=== PATIENT | male | born 1995 | race Caucasian/White ===

== ENCOUNTER 2016-09-27 21:20 | Observation (INO) | payer OTHER ==
--- NOTE | ~2016-09-27 | HP ---
History And Physical [id number] [place]. [address] NAME: DERREK FERREIRA : [birth year] STATUS : DIS [place]iola PAT#: [id number] AGE: 21 ADM/REG DATE : 09/27/16 MR#: [id number] REPORT SERV DATE: 09/30/16 DICTATED BY: BETTIE MOSER DATE: 09/28/16 REPORT STATUS : Draft TRANSCRIBED BY: MODL DATE: 09/28/16 DATE OF ADMISSION: 09/27/2016 CHIEF COMPLAINT: Abdominal pain. HISTORY OF PRESENT ILLNESS: This is a 21-year-old male, who was visiting his grandmother in [facility] yesterday when he began to experience some nausea, anorexia, and exquisite right lower quadrant pain. He presented to the emergency department, was found to have a white blood cell count of 11.[address] evidence of acute appendicitis, primarily in the tip. The patient denies any diarrhea or sick contacts. Does say the pain is persistent. He denies any fever or chills, any blood per stool. He has never had a colonoscopy. He has no shortness of breath, palpitations, or changes in mental status. REVIEW OF SYSTEMS: Negative except as per HPI. PAST MEDICAL HISTORY: Depression. PAST SURGICAL HISTORY: [place] teeth extraction. MEDICATIONS: Venlafaxine. ALLERGIES: THE PATIENT DENIES ANY KNOWN DRUG OR ENVIRONMENTAL ALLERGIES. FAMILY HISTORY: The patient is unsure of any family history of significant bleeding disorders, bowel diseases, cancers, or medical issues such as diabetes or coronary artery disease. SOCIAL HISTORY: The patient is and is disabled from the . He has no children. He does smoke one-half pack of cigarettes daily and endorses occasional but rare alcohol use. He denies drug use. PHYSICAL EXAMINATION: VITAL SIGNS: The patient is afebrile with stable vital signs. GENERAL APPEARANCE: The patient is alert and oriented x3 and in no apparent distress. HEAD EYES, EARS, NOSE, AND THROAT: There is no scleral icterus and no facial droop. Hearing is grossly normal. There is no otorrhea. Oropharynx is pink and moist. NECK: Examination of the neck reveals no cervical lymphadenopathy or thyromegaly. CHEST: Lung sounds are clear bilaterally with nonlabored respirations. CARDIAC: Heart rate is regular. No murmurs. ABDOMEN: Soft and nondistended. Rovsing sign is positive, and he is tender with involuntary guarding in the right lower quadrant. There are no hernias. NECK: Examination of extremities reveals no deformity and full range of motion x4. No edema. PSYCHIATRIC: Appropriate mood and affect with normal speech patterns. NEUROLOGIC: No focal deficits. History And Physical [address] [place]. [address] NAME: DERREK FERREIRA : 89 STATUS : DIS [place]ola PAT#: [id number] AGE: 21 ADM/REG DATE : 09/27/16 MR#: [id number] REPORT SERV DATE: 09/30/16 DICTATED BY: BETTIE MOSER DATE: 09/28/16 REPORT STATUS : Draft TRANSCRIBED BY: FLOWER DATE: 09/28/16 LABORATORY DATA: Relevant laboratory studies reveal a white blood cell count of 11.2, hemoglobin is 15.8, and platelets are 229. CMP is within normal limits with a lipase of 106 and creatinine of 0.9. Urinalysis is negative for infection or blood. CT scan shows periappendiceal fat stranding as well as a thickened distal appendix. No evidence of perforation. This is consistent with acute appendicitis. ASSESSMENT AND PLAN: This is a 21-year-old male with acute appendicitis. Plan will be to take for laparoscopic appendectomy today. He will be placed n.p.o. with IV fluids and antibiotics on-call to the operating room. Plan will be to retain the patient in-house postoperatively for pain control and diet advancement. DICTATED BY: MD KELVIN Benitez/FLOWER Bettie Moser MD / [id number] CC: Chiquita Marsh MD
--- NOTE | ~2016-09-27 | OP ---
Record Of Operation [facility] [address] [place]. [address] NAME: DERREK FERREIRA : [birth year] STATUS : DIS Abiola PAT#: [id number] AGE: 21 ADM/REG DATE : 09/27/16 MR#: [id number] REPORT SERV DATE: 09/30/16 DICTATED BY: BETTIE MOSER DATE: 09/28/16 REPORT STATUS : Draft TRANSCRIBED BY: MODL DATE: 09/28/16 DATE OF PROCEDURE: 09/28/2016 PREOPERATIVE DIAGNOSIS: Acute appendicitis. POSTOPERATIVE DIAGNOSIS: Acute appendicitis. PROCEDURE PERFORMED: Laparoscopic appendectomy. SURGEON: Dr. Bettie Moser. FELLOW: Dr. Santi Agarwal. ANESTHESIA: General endotracheal tube anesthesia plus local anesthetic. IV FLUIDS: 500 mL. ESTIMATED BLOOD LOSS: 5 mL. SPECIMENS AND CULTURES: Appendix sent to surgical pathology. DRAINS: None. COMPLICATIONS: None. INDICATIONS FOR PROCEDURE: This is a 21-year-old male who presented to the emergency department with right lower quadrant abdominal pain, was found to have acute appendicitis. He was offered laparoscopic appendectomy. Risks, benefits, and alternatives, including bleeding, infection, scarring, perforation, abscess, risk of DVT, risk of future hernia, anesthesia risks, and injury to the surrounding structures were explained to the patient who understood these and consented to undergo laparoscopic possible open appendectomy. DESCRIPTION OF PROCEDURE: The patient was brought to the operating room, placed in the supine position where anesthesia was induced. He was secured to the bed and no Bryan catheter was placed due to urination prior to the procedure. His arms were tucked and the patient was secured tightly to the bed. Preoperative antibiotics were administered and SCDs were placed and turned on. Preoperative time-out was called and agreed upon. The patient's abdomen was prepped and draped sterilely. A scalpel was used to make an incision through the base of the umbilicus and blunt dissection was used to enter the [place] umbilical defect which the patient had a fairly large umbilical hernia roughly half a centimeter across. We were able to enter the abdomen bluntly and placed a 12 mm trocar where pneumoperitoneum was achieved without complication. We then placed two 5 mm working ports under direct visualization, one in the right upper quadrant and one in the left lower quadrant. Survey of the abdomen did not reveal any bowel injury or any other abnormalities. The appendix was easily visualized in the right lower quadrant and due to some surrounding inflammation, was stuck at the pelvic brim. This was taken down sharply with minimal bleeding. Blunt Record Of Operation [facility] [address] [facility] [place]. [address] NAME: DERREK FERREIRA : 89 STATUS : DIS Abiola PAT#: [id number] AGE: 21 ADM/REG DATE : 09/27/16 MR#: [id number] REPORT SERV DATE: 09/30/16 DICTATED BY: BETTIE MOSER DATE: 09/28/16 REPORT STATUS : Draft TRANSCRIBED BY: MODL DATE: 09/28/16 dissection was able to free the appendix up and then a window was created using blunt dissection at the appendiceal cecal confluence. A 45 mm blue load laparoscopic stapler was then passed across the base of the appendix junction with the cecum. The appendix was then elevated and a white load laparoscopic vascular stapler was passed across the mesoappendix. There was noticeable bleeding vessel after firing of the white load stapler and this was grasped and 3 laparoscopic clips were placed. Hemostasis was then adequate. There was a small attachment left of the appendix to the cecal base not involving bowel. A clip was placed on the stay side of the specimen and this was divided sharply. The appendix was placed in the EndoCatch bag. The operative field was again reexamined for hemostasis and it was found to be adequate. Laparoscopic working ports were taken out under direct visualization. The fascia at the umbilical incision was closed using a 0 Vicryl suture in [id number] fashion. All skin defects were closed using 4-0 Monocryl and dressed sterilely. All needle, lap, and instrument counts were correct at the end of the procedure and Dr. Moser was scrubbed and present for the duration of the procedure. DICTATED BY: MD KELVIN Benitez/FLOWER Bettie Moser MD / [id number] CC: Chiquita Marsh MD
[2016-09-28 00:47] LABS: BASOPHILS 0.2 %; BASOPHILS ABSOLUTE 0.02 10/3/uL (0.0-0.16); EOSINOPHILS 2.3 %; EOSINOPHILS ABSOLUTE 0.26 10/3/uL (0.0-0.53); ER CBC TAT 0 Hrs 10 Mins; HEMOGLOBIN 15.8 g/dL (13.6-17.8); IMMATURE GRANULOCYTES 0.3 %; IMMATURE GRANULOCYTES ABSOLUTE 0.03 10/3/uL (0.0-0.11); LYMPHOCYTES ABSOLUTE 3.26 10/3/uL (0.67-4.30); MEAN CORPUS HGB CONC 34.3 g/dL (32.0-36.0); MEAN CORPUSCULAR HEMOGLOB 30.3 pg (26.0-34.0); MEAN CORPUSCULAR VOLUME 88.1 fL (80-100); MEAN PLATELET VOLUME 10.9 fL (9.2-13.0); MONOCYTES 6.9 %; MONOCYTES ABSOLUTE 0.78 10/3/uL (0.21-1.20); NEUTROPHILS 61.3 %; NEUTROPHILS ABSOLUTE 6.89 10/3/uL (2.02-8.40); PLATELET COUNT 229 10/3/uL (150-400); RBC DISTRIBUTION WIDTH 12.1 % (12.0-16.0); RED CELL COUNT 5.22 10/6/uL (4.7-6.1); WHITE BLOOD CELLS 11.2 10/3/uL (4.5-10.5)
[2016-09-28 00:48] LABS: MANUAL DIFF NO %
[2016-09-28 01:04] LABS: ALKALINE PHOSPHATASE 90 U/L (45-117); BUN (BLOOD UREA NITROGEN) 22 MG/DL (6-23); CALCIUM, SERUM 9.1 MG/DL (8.5-10.4); CHLORIDE, SERUM 101 MMOL/L (96-112); CO2 (CARBON DIOXIDE) 31 MMOL/L (24-34); GFR AFRICAN AMERICAN 139 ML/MIN (>=60); GFR NON AFRICAN AMERICAN 120 ML/MIN (>=60); GLUCOSE, SERUM 86 MG/DL (60-99); POTASSIUM, SERUM 4.1 MMOL/L (3.5-5.3); SGOT(AST) 13 U/L (5-40); SGPT(ALT) 35 U/L (5-65); SODIUM, SERUM 140 MMOL/L (135-148); TOTAL BILIRUBIN 0.3 MG/DL (0-1.2)
[2016-09-28 01:16] LABS: ASCORBIC ACID (UR NOT ORDER) NEG (NEG); BILIRUBIN, URINE NEGATIVE (NEG); ER URINALYSIS TAT 0 Hrs 00 Mins; KETONE, URINE NEGATIVE (NEG); LEUKOCYTE ESTERASE(NOT OR NEG (NEG); NITRITE (URINE) NEG (NEG); WBC (NOT ORDERED) (RFLEX) 0 (0-5)
[2016-09-28] MEDS ORDERED: EFFEXOR XR150 MG PO (01:35)
[2016-09-28] MEDS ORDERED: VITAMIN D31000 UNIT PO (01:35)
[2016-09-28] MEDS ORDERED: VOLT50 PO (01:35)
[2016-09-28] MEDS ORDERED: HABIT21 TOP (01:36)
[2016-09-28] MEDS ORDERED: NICOTINE 4 MG PO (01:37)
[2016-09-29 06:40] LABS: BASOPHILS 0.1 %; BASOPHILS ABSOLUTE 0.01 10/3/uL (0.0-0.16); EOSINOPHILS 0.3 %; EOSINOPHILS ABSOLUTE 0.03 10/3/uL (0.0-0.53); IMMATURE GRANULOCYTES 0.1 %; IMMATURE GRANULOCYTES ABSOLUTE 0.01 10/3/uL (0.0-0.11); LYMPHOCYTES 16.7 %; LYMPHOCYTES ABSOLUTE 1.77 10/3/uL (0.67-4.30); MEAN CORPUS HGB CONC 34.3 g/dL (32.0-36.0); MEAN CORPUSCULAR HEMOGLOB 29.6 pg (26.0-34.0); MEAN CORPUSCULAR VOLUME 86.3 fL (80-100); MEAN PLATELET VOLUME 10.8 fL (9.2-13.0); MONOCYTES 6.6 %; NEUTROPHILS 76.2 %; NEUTROPHILS ABSOLUTE 8.07 10/3/uL (2.02-8.40); PLATELET COUNT 235 10/3/uL (150-400); RED CELL COUNT 4.73 10/6/uL (4.7-6.1); WHITE BLOOD CELLS 10.6 10/3/uL (4.5-10.5)
[2016-09-29 06:41] LABS: HEMATOCRIT 40.8 % (40.0-51.0); MANUAL DIFF NO %
[2016-09-29] MEDS ORDERED: NORCO1 TA1 PO (12:56)
== END 2016-09-29 13:11 | disposition home or self-care (01) ==
LOC: ER 21:20 → 4SO 23:59
PROVIDERS: Emergency Medicine; Transplant Surgery
PROC: 0DTJ4ZZ Resection of Appendix, Percutaneous Endoscopic Approach (ICD-10-PCS; principal; 2016-09-28 12:00)
DX: K35.80 Unspecified acute appendicitis (principal); F32.9 Major depressive disorder, single episode, unspecified; F17.210 Nicotine dependence, cigarettes, uncomplicated; G43.909 Migraine, unspecified, not intractable, without status migrainosus; G89.29 Other chronic pain; M54.9 Dorsalgia, unspecified; Z98.890 Other specified postprocedural states; Z79.899 Other long term (current) drug therapy
CPT/HCPCS: 74176; 80053; 81001; 83690; 85025; 88304; 96374; 96375; 96376; 99285; A9270-GY; G0378; J0694; J1170; J1885; J2250; J2405; J2710; J3010